=== PATIENT | female | born 1970 | race Caucasian/White ===

== ENCOUNTER 2023-09-06 14:59 | Emergency (ER) | payer OTHER ==
[2023-09-06 16:07] LABS: INFLUENZA A NAA NEGATIVE (NEGATIVE); INFLUENZA B NAA NEGATIVE (NEGATIVE)
[2023-09-06 16:16] LABS: CORONAVIRUS COVID-19 NAA POSITIVE (NEGATIVE)
== END 2023-09-06 17:17 | disposition home or self-care (01) ==
LOC: FB.ED 14:59
DX: U07.1 COVID-19 (principal); K52.9 Noninfective gastroenteritis and colitis, unspecified; E03.9 Hypothyroidism, unspecified; I10 Essential (primary) hypertension; Z79.899 Other long term (current) drug therapy
CPT/HCPCS: 0240U; 99284

== ENCOUNTER 2023-09-07 14:56 | Emergency (ER) | payer OTHER | END 2023-09-07 16:10 | disposition home or self-care (01) | LOC: FB.ED 14:56 | DX: U07.1 COVID-19 (principal); A37.00 Whooping cough due to Bordetella pertussis without pneumonia; I10 Essential (primary) hypertension; E03.9 Hypothyroidism, unspecified; Z79.899 Other long term (current) drug therapy | CPT/HCPCS: 99283 ==